=== PATIENT | female | born 1980 | race Caucasian/White ===

== ENCOUNTER 2017-07-22 00:26 | Emergency (ER) | payer OTHER ==
[~2017-07-22] VITALS: Ht 165.1 cm; Wt 78.7 kg
[~2017-07-22 00:26] MED LIST: ULTRAM50 MG PO; ZOFRAN4 MG PO
[2017-07-22] MEDS ORDERED: ULTRAM50 MG PO (03:55)
[2017-07-22 04:04] VITALS: BP 135/91
== END 2017-07-22 04:23 | disposition home or self-care (01) ==
LOC: EME 00:26
DX: F07.81 Postconcussional syndrome (principal); S09.8XXA Other specified injuries of head, initial encounter; M54.2 Cervicalgia; M54.6 Pain in thoracic spine; V49.40XA Driver injured in collision with unspecified motor vehicles in traffic accident, initial encounter; Y92.410 Unspecified street and highway as the place of occurrence of the external cause
CPT/HCPCS: 70450; 99281; 99283